=== PATIENT | female | born 1930 | race Caucasian/White ===

== ENCOUNTER 2016-12-12 15:27 | Observation (INO) | payer MEDICARE, BC ==
--- NOTE | ~2016-12-12 | HP ---
History And Physical [id number] [place]. [address] NAME: MARITZA AWAN : 34 STATUS : ADM Loyda PAT#: [id number] AGE: 86 ADM/REG DATE : 12/12/16 MR#: [id number] REPORT SERV DATE: 12/13/16 DICTATED BY: SARTHAK ALBA III DATE: 12/12/16 REPORT STATUS : Draft TRANSCRIBED BY: HUNTER DATE: 12/12/16 DATE OF ADMISSION: 12/12/2016 HISTORY OF PRESENT ILLNESS: Mrs. Maritza Awan is an 86-year-old, white female, admitted to [facility] for evaluation of chest pain. The patient had been in her usual state of health until the . At that time, the patient underwent percutaneous transluminal coronary angioplasty by Dr. Tevin Ramsey. The patient did well until 2001. At that time, the patient underwent four vessel coronary artery bypass graft surgery by Dr. Giovanni Garrido. The patient subsequently did well until April of 2008. At that time, the patient underwent percutaneous coronary intervention with implantation of a 3.5 x 12 mm Liberte stent in the proximal portion and a 2.75 x 24 mm Liberte stent in the mid portion of the left anterior descending coronary artery. On 12/26/2014, the patient underwent right and left heart catheterization. Cardiac catheterization demonstrated mild aortic stenosis, normal left ventricular systolic function, two vessel coronary artery disease (involving the proximal portion of left circumflex and right coronary arteries), patent saphenous vein graft to the obtuse marginal branch, and three totally occluded saphenous vein grafts. On 01/09/2016 the patient underwent a 2D and Doppler echocardiogram. That study demonstrated grade II left ventricular diastolic dysfunction, mild aortic stenosis/regurgitation, moderate tricuspid regurgitation, mild mitral regurgitation, and mild pulmonary hypertension. On 01/11/2016, the patient underwent an intravenous vasodilator myocardial perfusion scan. Myocardial perfusion imaging was normal. The patient did well until approximately five days prior to this admission. At that time, the patient had onset of dull substernal chest pain radiating to her left jaw and interscapular region. The chest pain was transient in character. The patient did well until the day of admission. At that time, the patient noted recurrent dull substernal chest pain radiating to the left jaw and interscapular region. The patient's chest pain lasted approximately 2 hours in duration. The patient's chest pain was accompanied by dyspnea, diaphoresis, nausea, and generalized weakness. The patient denied any associated vomiting. The patient's chest pain occurred at rest. The patient denied relation to exertion, emotional upset, oral intake, positional change, and respiration. The patient denied relieving factors. The patient denied trying sublingual nitroglycerin, antacids, or a heating pad. The patient has a history of Raynaud phenomenon. The patient has no history of migraine headaches. The patient was subsequently seen in the [facility] Emergency Room. A 12-lead electrocardiogram demonstrated sinus rhythm at a rate of 60 beats per minute. There were no significant ST-segment or T- wave abnormalities. The patient's troponin I was less than 0.02. The patient was subsequently admitted for further evaluation. The patient complained of dyspnea on exertion. The patient wears continuous oxygen. The patient denied pedal edema, sacral edema, palpitations, or syncope. The patient has no history of rheumatic fever or cardiac murmur. The patient's documented coronary artery disease risk factors include family history, hyperlipoproteinemia, and hypertension. PAST MEDICAL HISTORY: 1. Hypertension. 2. Hyperlipoproteinemia. 3. Raynaud phenomenon. History And Physical [address] [address] NAME: MARITZA AWAN : 34 STATUS : ADM Loyda PAT#: [id number] AGE: 86 ADM/REG DATE : 12/12/16 MR#: [id number] REPORT SERV DATE: 12/13/16 DICTATED BY: SARTHAK ALBA III DATE: 12/12/16 REPORT STATUS : Draft TRANSCRIBED BY: HUNTER DATE: 12/12/16 4. Chronic obstructive pulmonary disease. 5. History of paroxysmal atrial fibrillation. 6. Hypothyroidism. 7. Spondylosis. 8. Osteoarthritis. OPERATIVE PROCEDURES: 1. Status post resection of a cyst on the lumbosacral spine. 2. Status post total abdominal hysterectomy with bilateral salpingo-oophorectomy. 3. Status post appendectomy. 4. Status post umbilical herniorrhaphy. 5. Status post bilateral inguinal herniorrhaphy, two occasions. 6. Status post Matt fundoplication. 7. Status post bladder suspension. 8. Status post cholecystectomy. 9. Status post both eyes cataract extractions with intra-ocular lens implants. 10.Status post coronary artery bypass graft surgery, 2001. 11.Status post repair of abdominal incisional hernia. ALLERGIES: PENICILLIN. MEDICATIONS: 1. Clopidogrel 75 mg p.o. daily. 2. Diltiazem ER 300 mg p.o. daily. 3. Losartan 100 mg p.o. daily. 4. Simvastatin 20 mg p.o. at bedtime. 5. Nitro-Dur patch 0.2 mg/hour on 12 hours and off 12 hours. 6. Rivaroxaban 20 mg p.o. daily. 7. Digoxin 0.0625 mg p.o. daily. 8. Symbicort MDI two puffs b.i.d. 9. Albuterol MDI two puffs, p.r.n. 10.Mucinex DM one p.o. daily, p.r.n. FAMILY HISTORY: Positive for myocardial infarction, hypertension, stroke, diabetes mellitus, cancer, anemia, and arthritis. Negative for seizures, kidney disease, and liver disease. SOCIAL HISTORY: The patient denied any history of alcohol use. The patient discontinued cigarette smoking approximately 50 years prior to this admission. PHYSICAL EXAMINATION: GENERAL: Physical examination demonstrated an alert, thin, elderly white female, in no acute distress. VITAL SIGNS: Demonstrated that she was afebrile to touch, respiratory rate was 14 breaths per minute, and blood pressure was 140/58 mmHg with a heart rate of 62 beats per minute. SKIN: Warm and dry. There were multiple well-healed surgical scars. There was onychomycosis involving the nails of the left lower extremity. There was onychomycosis involving the nails of the second, third, and fifth digits of the right lower extremity. History And Physical [address] [address] NAME: MARITZA AWAN : 34 STATUS : ADM Loyda PAT#: [id number] AGE: 86 ADM/REG DATE : 12/12/16 MR#: [id number] REPORT SERV DATE: 12/13/16 DICTATED BY: SARTHAK ALBA III DATE: 12/12/16 REPORT STATUS : Draft TRANSCRIBED BY: HUNTER DATE: 12/12/16 NECK: Supple and nontender. There was decreased range of motion. There was no appreciable lymphadenopathy or thyromegaly. There was no jugular venous distention at 90 degrees. There were no carotid bruits. BACK: Examination of the back demonstrated no spinal tenderness. There was bilateral costovertebral angle tenderness. CHEST: Examination of the chest demonstrated bilateral coarse inspiratory crackles extending one-half the way up the posterior lung [place]. There were no rhonchi, wheezes, or pleural rubs. There was symmetrical expansion of the chest. CARDIAC: Cardiac examination demonstrated a nonpalpable apical impulse. There was a regular rhythm and rate. Heart sounds were distant. There was no appreciable murmur, rub, gallop, or mid systolic click. There were no thrills or heaves. ABDOMEN: Examination of the abdomen demonstrated that it was obese, soft, and protuberant. There was no appreciable hepatosplenomegaly or masses. Bowel sounds were intact. There were no abdominal or femoral bruits. BACK: Examination of the extremities demonstrated they were symmetrical. There was decreased range of motion. There were Heberden's nodes. There was no cyanosis, clubbing, or edema. Pulses were 2+ and equal at the radial, femoral, and dorsalis pedis arteries. The posterior tibial pulses were trace to nonpalpable. ASSESSMENT: Mrs. Maritza Awan is an 86-year-old, white female with four other risk factors for coronary atherosclerotic disease (i.e. 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 The patient now presents with atypical chest pains. The patient's initial 12-lead electrocardiogram and troponin I level demonstrated no evidence of myocardial ischemia/infarction. The patient is admitted for cardiovascular risk stratification. LORENZO/HUNTER Sarthak Alba III, M.D., [facility] / [id number] CC: Kymberly Monroe M.D.
[2016-12-12 13:40] LABS: BASOPHILS 0.3 %; BASOPHILS ABSOLUTE 0.02 10/3/uL (0.0-0.16); EOSINOPHILS 1.2 %; EOSINOPHILS ABSOLUTE 0.07 10/3/uL (0.0-0.53); ER CBC TAT 0 Hrs 07 Mins; HEMATOCRIT 33.7 % (36.0-48.0); HEMOGLOBIN 11.3 g/dL (12.0-16.0); IMMATURE GRANULOCYTES 0.2 %; IMMATURE GRANULOCYTES ABSOLUTE 0.01 10/3/uL (0.0-0.11); LYMPHOCYTES 24.9 %; LYMPHOCYTES ABSOLUTE 1.48 10/3/uL (0.67-4.30); MANUAL DIFF NO %; MEAN CORPUS HGB CONC 33.5 g/dL (32.0-36.0); MEAN CORPUSCULAR VOLUME 86.6 fL (80-100); MEAN PLATELET VOLUME 9.4 fL (9.2-13.0); MONOCYTES 9.8 %; MONOCYTES ABSOLUTE 0.58 10/3/uL (0.21-1.20); NEUTROPHILS 63.6 %; NEUTROPHILS ABSOLUTE 3.78 10/3/uL (2.02-8.40); PLATELET COUNT 204 10/3/uL (150-400); RBC DISTRIBUTION WIDTH 13.1 % (12.0-16.0); RED CELL COUNT 3.89 10/6/uL (4.0-5.6); WHITE BLOOD CELLS 5.9 10/3/uL (4.5-10.5)
[2016-12-12 13:46] LABS: INTERNATIONAL NORMAL RATI 1.3 UNITS (-)
[2016-12-12 13:47] LABS: PARTIAL THROMBO TIME 31.2 SEC (22.5-37.2)
[2016-12-12 13:49] LABS: PROTIME (NOT ORD) 16.1 SEC (12.0-14.5)
[2016-12-12 13:58] LABS: ALBUMIN 3.5 G/DL (3.5-5.0); ALKALINE PHOSPHATASE 69 U/L (45-117); CALCIUM, SERUM 9.7 MG/DL (8.5-10.4); CHEST PAIN PROFILE TAT 0 Hrs 25 Mins; CHLORIDE, SERUM 107 MMOL/L (96-112); CO2 (CARBON DIOXIDE) 26 MMOL/L (24-34); CREATININE 0.62 MG/DL (0.55-1.02); GFR AFRICAN AMERICAN 96 ML/MIN (>=60); GFR NON AFRICAN AMERICAN 83 ML/MIN (>=60); GLUCOSE, SERUM 94 MG/DL (60-99); POTASSIUM, SERUM 4.6 MMOL/L (3.5-5.3); SGPT(ALT) 21 U/L (5-65); SODIUM, SERUM 141 MMOL/L (135-148); TOTAL BILIRUBIN 0.2 MG/DL (0-1.2); TOTAL PROTEIN 7.1 G/DL (6.0-8.5); TROPONIN I <0.02 NG/ML (<0.05)
[2016-12-12 13:59] LABS: BUN (BLOOD UREA NITROGEN) 14 MG/DL (6-23); DIRECT BILIRUBIN 0.1 MG/DL (0.0-0.4); INDIRECT BILIRUBIN(NOT ORDER) 0.1 MG/DL (0.1-0.9)
[2016-12-12 14:00] LABS: SGOT(AST) 23 U/L (5-40)
[~2016-12-12 15:27] MED LIST: ACET500CAP PO; ALAVERT10 MG PO; ALBUTEROL NEB INH; ALLEGRA180 PO; ASA5GR PO; ASAB PO; ASABAYER PO; CALTRA600D PO; CALTRAT600 PO; CARDCD300 PO; COMBIVENT RESPIM4 GM INH; COZAAR100 MG PO; CRESTOR40 MG PO; DIGITEK0.125 MG PO; DIGITEK0.25 MG PO; FLEX PO; FLONASE NAS; GELNIQUE TOP; GELNIQUE92 GM TOP; LAN25 PO; LEVAQUIN750 MG PO; LEVOTHYROXIN25 MCG PO; MACRO50B PO; METHIMAZOLE10 MG OR; METHOC500B PO; MICARDIS40 PO; MINITRAN TOP; MINITRAN0.2 MG/HR TOP; MIRALAXPKT PO; MUCINEX D1 TA1 PO; MUCINEX600 MG PO; NIASPAN500 PO; OS500+D PO; P20 PO; PCET PO; PLAVIX PO; PROAIR HFA INH; PROTONIX PO; PROVENTSOL INH; PVC V; SPIRIVA INH; SYMBICORT 160/41 INH INH; TAPAZOLE10 MG PO; TAPAZOLE5 MG PO; TAZTIA PO; TRIMO-SAN V; TRIMO-SAN VA; ULTRACET PO; VITC500 PO; VOLT50 PO; VOLTAREN1 % TOP; ZOCOR20 PO
[2016-12-12] MEDS ORDERED: TAZTIA PO (15:36)
[2016-12-12] MEDS ORDERED: LAN125 PO (15:37)
[2016-12-12] MEDS ORDERED: PLAVIX PO (15:37)
[2016-12-12] MEDS ORDERED: COZAAR100 MG PO (15:37)
[2016-12-12] MEDS ORDERED: NITROII10C TOP (15:38)
[2016-12-12] MEDS ORDERED: SYMBICORT 160/41 INH INH (15:38)
[2016-12-12] MEDS ORDERED: ZOCOR20 PO (15:38)
[2016-12-12] MEDS ORDERED: MUCINEX DM TABLET PO (15:39)
[2016-12-12] MEDS ORDERED: XARELTO20 MG PO (15:39)
[2016-12-12] MEDS ORDERED: PROAIR HFA INH (15:39)
[2016-12-13 05:42] LABS: BASOPHILS 0.3 %; BASOPHILS ABSOLUTE 0.02 10/3/uL (0.0-0.16); EOSINOPHILS 1.9 %; EOSINOPHILS ABSOLUTE 0.14 10/3/uL (0.0-0.53); HEMATOCRIT 34.7 % (36.0-48.0); HEMOGLOBIN 11.7 g/dL (12.0-16.0); IMMATURE GRANULOCYTES 0.1 %; IMMATURE GRANULOCYTES ABSOLUTE 0.01 10/3/uL (0.0-0.11); LYMPHOCYTES 21.5 %; LYMPHOCYTES ABSOLUTE 1.56 10/3/uL (0.67-4.30); MEAN CORPUS HGB CONC 33.7 g/dL (32.0-36.0); MEAN CORPUSCULAR HEMOGLOB 29.4 pg (26.0-34.0); MEAN CORPUSCULAR VOLUME 87.2 fL (80-100); MONOCYTES ABSOLUTE 0.65 10/3/uL (0.21-1.20); NEUTROPHILS 67.2 %; NEUTROPHILS ABSOLUTE 4.86 10/3/uL (2.02-8.40); PLATELET COUNT 204 10/3/uL (150-400); RBC DISTRIBUTION WIDTH 12.8 % (12.0-16.0); RED CELL COUNT 3.98 10/6/uL (4.0-5.6); WHITE BLOOD CELLS 7.2 10/3/uL (4.5-10.5)
[2016-12-13 05:43] LABS: MANUAL DIFF NO %
[2016-12-13 06:45] LABS: CHOL/HDL RATIO(NOT ORDER) 3.9 (0-5)
[2017-02-09] MEDS ORDERED: MUCINEX600 MG PO (09:24)
[2017-02-09] MEDS ORDERED: PREM625 PO (09:25)
[2017-02-09] MEDS ORDERED: ELIQUIS 2.5 MG2.5 MG PO (09:26)
[2017-02-09] MEDS ORDERED: NITROSTAT0.4 MG SL (09:26)
[2017-02-10] MEDS ORDERED: LIOR10 PO (13:21)
[2017-02-10] MEDS ORDERED: NORCO1 TAB PO (13:21)
[2017-02-11] MEDS ORDERED: PLAVIX PO (08:19)
== END 2016-12-13 16:35 | disposition home or self-care (01) ==
LOC: ER 15:27 → CDU1 15:36 → CDU2 16:36
PROVIDERS: Emergency Medicine; Internal Medicine Cardiovascular Disease
DX: R07.89 Other chest pain (principal); I25.10 Atherosclerotic heart disease of native coronary artery without angina pectoris; I48.0 Paroxysmal atrial fibrillation; I10 Essential (primary) hypertension; E78.5 Hyperlipidemia, unspecified; I73.00 Raynaud's syndrome without gangrene; J44.9 Chronic obstructive pulmonary disease, unspecified; E03.9 Hypothyroidism, unspecified; M47.9 Spondylosis, unspecified; M19.90 Unspecified osteoarthritis, unspecified site; Z87.891 Personal history of nicotine dependence; Z90.710 Acquired absence of both cervix and uterus; Z90.49 Acquired absence of other specified parts of digestive tract; Z98.890 Other specified postprocedural states; Z98.41 Cataract extraction status, right eye; Z98.42 Cataract extraction status, left eye; Z88.0 Allergy status to penicillin; Z79.899 Other long term (current) drug therapy
CPT/HCPCS: 71010; 78452; 80048; 80061; 80076; 83690; 83735; 84460; 84484; 85025; 85610; 85730; 93005; 93017; 94640; 99285; A9270-GY; A9502; G0378; J2785

== ENCOUNTER 2017-04-13 11:40 | Emergency (ER) | payer MEDICARE, BC ==
[~2017-04-13 11:40] MED LIST changes: +ELIQUIS 2.5 MG2.5 MG PO; +LAN125 PO; +LIOR10 PO; +MUCINEX DM TABLET PO; +NITROII10C TOP; +NITROSTAT0.4 MG SL; +NORCO1 TAB PO; +PREM625 PO; +XARELTO20 MG PO
== END 2017-04-13 13:47 | disposition home or self-care (01) ==
LOC: ER 11:40
PROC: 0HQFXZZ Repair Right Hand Skin, External Approach (ICD-10-PCS; principal; 2017-04-13)
DX: S61.212A Laceration without foreign body of right middle finger without damage to nail, initial encounter (principal); S60.051A Contusion of right little finger without damage to nail, initial encounter; F17.200 Nicotine dependence, unspecified, uncomplicated; I25.2 Old myocardial infarction; I10 Essential (primary) hypertension; I48.91 Unspecified atrial fibrillation; Z95.5 Presence of coronary angioplasty implant and graft; Z95.1 Presence of aortocoronary bypass graft; Z88.0 Allergy status to penicillin; Z79.899 Other long term (current) drug therapy; W26.0XXA Contact with knife, initial encounter
CPT/HCPCS: 73130-RT; 99283